=== PATIENT | male | born 1960 ===

== ENCOUNTER 2017-03-01 14:36 | Emergency (ER) | payer BC, MEDICAID ==
[2017-03-01 14:52] VITALS: BP 175/108; PULSE 108; RESP 18; TEMP 98.4; O2SAT 97
--- NOTE | 2017-03-01 15:38 | ED PDOC ---
Lower Extremity Pain/Injury Time Seen by Provider: 03/01/17 15:04 Chief Complaint (Nursing): Lower Extremity Problem/Injury History Per: Patient Additional Complaint(s): Patient is a 56 yr old male who is c/o right lateral knee pain x 2 days. Patient denies any trauma; however, pt with history of right knee ligamentous injury in past (requiring surgery) and patient states that his job is very strenuous--requires significant amount of walking/exertion. Pt states that his knee does not feel warm. No fever. He took Motrin for the pain and it does help the pain. Patient denies any posterior leg/calf pain. When asked to point where it hurts, pt touches right knee at his lateral epicondyle. Pt's BP is a little elevated; he had not yet taken his BP earlier today, so he took his PO BP medication about 5 mins ago. PMD: Dr. Elmira Valentine . Past Medical History Reviewed: Historical Data, Nursing Documentation, Vital Signs Vital Signs: Last Vital Signs Temp 98.4 F 03/01/17 14:48 Pulse 108 H 03/01/17 14:48 Resp 18 03/01/17 14:48 BP 175/108 H 03/01/17 14:48 Pulse Ox 97 03/01/17 14:48 - Medical History PMH: Diabetes, HTN - Family History Family History: States: Diabetes, Hypertension Other Family History: Right knee surgery - Social History Ex-Smoker (has not smoked in the last 12 months): Yes Alcohol: None Drugs: Denies - Immunization History Hx Tetanus Toxoid Vaccination: No Hx Influenza Vaccination: No Hx Pneumococcal Vaccination: No - Home Medications Home Medications: Ambulatory Orders Medication Instructions Recorded Acetaminophen with Codeine 2 tab PO Q4H PRN #22 tab 09/23/15 [Tylenol with Codeine No. 3 300 mg-30 mg] Naproxen [Naprosyn] 1 tab PO BID PRN #60 tab 09/23/15 Acetaminophen [Tylenol 325mg tab] 3 tab PO Q6 PRN #60 tab 03/01/17 Ibuprofen [Motrin] 1 tab PO Q8 PRN #15 tab 03/01/17 traMADol [Ultram] 1 tab PO Q12 PRN #12 tab 03/01/17 - Allergies Allergies/Adverse Reactions: Allergies Allergy/AdvReac Type Severity Reaction Status Date / Time No Known Allergies Allergy Verified 09/23/15 13:02 Physical Exam - Reviewed Nursing Documentation Reviewed: Yes Vital Signs Reviewed: Yes - Physical Exam Appears: Positive for: Well, Non-toxic Head Exam: Positive for: ATRAUMATIC, NORMAL INSPECTION, NORMOCEPHALIC Cardiovascular/Chest: Positive for: Regular Rate, Rhythm. Negative for: Murmur Respiratory: Positive for: Normal Breath Sounds. Negative for: Rales, Rhonchi, Wheezing Extremity: Positive for: Swelling (right knee (effusion)), Other (In contrast to triage, there is no warmth to right knee; (+) tenderness right lateral epicondyle; no redness to right knee; ROM intact to knee) - ECG O2 Sat by Pulse Oximetry: 97 Medical Decision Making Medical Decision Making: Initial Impression: Right knee pain/knee effusion Differential dx includes but is not limited to: right knee strain, right knee arthritis, gout/inflammatory arthritis While there is an effusion, this does not have the appearance of a septic joint- -no warmth to area, no redness to area, and no tenderness when press down on patella into the effusion (the tenderness is limited to lateral epicondyle). Pt is also on Plavix--making therapeutic tap more risky. Initial Plan: Will get xrays; pain medication 5:29 PM: Patient feels better after Toradol. Will d/c home Disposition - Clinical Impression Clinical Impression: Knee pain, right, Arthritis - Patient ED Disposition Is Patient to be Admitted: No Counseled Patient/Family Regarding: Studies Performed, Diagnosis, Need For Followup, Rx Given - Disposition Referrals: Boogie Hernandez MD [Staff Provider] - Disposition: Routine/Home Disposition Time: 17:30 Condition: IMPROVED Additional Instructions: Mr. Cristina, thank you for letting us take care of you today. Return to the ER if your symptoms worsen, or if any problems. Take the medication(s) listed below as prescribed. Elevate your leg as much as possible, rest your leg, apply cold pack/ice to the knee. Call Dr. Baker (orthopedic doctor) at the phone number listed below to make a follow up appointment. Prescriptions: Acetaminophen [Tylenol 325mg tab] 3 tab PO Q6 PRN #60 tab PRN Reason: Pain, Moderate (4-7) Ibuprofen [Motrin] 1 tab PO Q8 PRN #15 tab PRN Reason: Pain, Moderate (4-7) traMADol [Ultram] 1 tab PO Q12 PRN #12 tab PRN Reason: Pain, Severe (8-10) Instructions: Swollen Knee Joint (ED), Knee Pain (ED), Arthritis (ED) Forms: [employer] (German) Print Language: CHINESE
--- NOTE | 2017-03-02 08:16 | RAD ---
PROCEDURE: Right Knee Radiographs. HISTORY: Right knee pain COMPARISON: None. FINDINGS: BONES: Normal. No fracture. Fixation screw in proximal tibia. JOINTS: Large joint effusion. JOINT EFFUSION: None. OTHER FINDINGS: None. Old [place]-Schlatter disease. IMPRESSION: Large joint effusion
== END 2017-03-01 17:45 | disposition home or self-care (01) ==
LOC: H.ER 14:36
DX: M25.561 Pain in right knee (principal); E11.9 Type 2 diabetes mellitus without complications; I10 Essential (primary) hypertension; Z87.891 Personal history of nicotine dependence
CPT/HCPCS: 73562; 84550; 96372; 99282; J1885